=== PATIENT | male | born 2000 | race Caucasian/White ===

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

== ENCOUNTER 2021-11-04 09:20 | Emergency (ER) | payer BC ==
[2021-11-04] MEDS ORDERED: Sodium Chloride 0.9% 10 ML Syringe FLUSH PRN (09:23)
[2021-11-04] MEDS ORDERED: Ketorolac 30 MG/ML SDV IVPUSH ONE ×2 (09:29→09:56)
[2021-11-04] MEDS ORDERED: Ondansetron 4 MG/2 ML SDV IVPUSH ONE (09:30)
[2021-11-04] MEDS ORDERED: HYDROmorphone 1 MG/ML Syringe IVPUSH ONE ×2 (09:30→09:44)
[2021-11-04] MEDS ORDERED: Iopamidol 612 MG/ML 100 ML Bottle IVPUSH ONE (09:32)
[2021-11-04] MEDS ORDERED: Sodium Chloride 0.9% 1,000 ML IV ONE ×2 (09:32→10:36)
[2021-11-04 09:35] VITALS: BP 143/78; PULSE 106
[2021-11-04 10:09] LABS: ANION GAP 15.8 mEq/L (7-13); CHLORIDE,CL 104 mmol/L (98-107); SODIUM,NA 143 mmol/L (136-145)
[2021-11-04 10:10] LABS: ESTIMATED GFR 91 mL/min (>=60)
[2021-11-04] MEDS ORDERED: Tamsulosin 0.4 MG Cap.ER PO ONE (11:00)
[2021-11-04 12:16] LABS: MDMA (ECSTASY), URINE NEGATIVE (NEGATIVE); METHADONE,URINE NEGATIVE (NEGATIVE); METHAMPHETAMINES,URINE NEGATIVE (NEGATIVE); OPIATES,URINE POSITIVE (NEGATIVE)
[2021-11-04 12:17] LABS: AMPHETAMINES,URINE NEGATIVE (NEGATIVE); BARBITURATES,URINE NEGATIVE (NEGATIVE); BENZODIAZEPINE,URINE NEGATIVE (NEGATIVE); OXYCODONE,URINE NEGATIVE (NEGATIVE); PHENCYCLIDINE,URINE NEGATIVE (NEGATIVE); TCA,URINE NEGATIVE (NEGATIVE)
== END 2021-11-04 11:58 | disposition home or self-care (01) ==
LOC: DL.ED 09:20
DX: N13.2 Hydronephrosis with renal and ureteral calculous obstruction (principal); K38.1 Appendicular concretions
CPT/HCPCS: 36415; 74177; 80053; 80305-QW; 80307; 81001; 82150; 82550; 83605; 83690; 85025; 86140; 96361; 96374; 96375; 99284; 99284-25; A9270-GY; J1170; J1885; J2405; J3490; J7030; Q9967

== ENCOUNTER 2025-03-20 06:16 | Emergency (ER) | payer BC ==
[2025-03-20] MEDS ORDERED: Sodium Chloride 0.9% 10 ML Syringe FLUSH PRN (06:23)
[2025-03-20 06:34] LABS: BASOPHILS PERCENT AUTO 0.7 % (0.0-1.0); EOSINOPHILS PERCENT AUTO 1.7 % (1.0-3.0); LYMPHOCYTES PERCENT AUTO 44.0 % (20.5-50.1); MONOCYTES PERCENT AUTO 9.8 % (2-8); NEUTROPHILS PERCENT AUTO 43.8 % (42.2-75.2); PLATELET COUNT,PLT 267 10^3/uL (150-450); RED BLOOD CELL COUNT 4.97 10^6/uL (4.6-6.2); WHITE BLOOD CELL COUNT,WBC 5.4 10^3/uL (5.0-10.0)
[2025-03-20] MEDS: fentaNYL 100 MCG/2 ML SDV IVPUSH ONE ×2 (06:36→07:01)
[2025-03-20] MEDS: Ondansetron 4 MG/2 ML SDV IVPUSH ONE (06:37)
[2025-03-20 06:54] LABS: A/G RATIO 1.2; ALANINE AMINOTRANSFERASE,ALT 64 U/L (16-63); ASPARTATE AMNIOTRANSFERASE,AST 28 U/L (15-37); BILIRUBIN TOTAL 0.7 mg/dL (0.2-1.0); BLOOD UREA NITROGEN,BUN 14 mg/dL (7-18); CARBON DIOXIDE,CO2 27 mmol/L (21-32); CHLORIDE,CL 103 mmol/L (98-107); CREATININE 1.20 mg/dL (0.70-1.30); EST CRCL DRUG DOSING (CG) 96.32 mL/min; ESTIMATED GFR 86 mL/min (>=60); GLUCOSE RANDOM 114 mg/dL (70-99); POTASSIUM,K 4.1 mmol/L (3.5-5.1); PROTEIN TOTAL,TP 8.0 g/dL (6.4-8.2); SODIUM,NA 141 mmol/L (136-145)
[2025-03-20 06:57] LABS: LACTIC ACID 1.5 mmol/L (0.4-2.0)
[2025-03-20 07:22] LABS: APPEARANCE,URINE CLEAR (CLEAR); GLUCOSE,URINE NEGATIVE (NEGATIVE); OCCULT BLOOD,URINE LARGE (NEGATIVE)
[2025-03-20 07:34] LABS: EPITHELIAL CELLS,URINE FEW /HPF (NOT SEEN)
[2025-03-20 08:18] VITALS: BP 135/65; PULSE 56
[2025-03-20] MEDS: Lactated Ringers 1,000 ML IV ONE (08:23)
[2025-03-20] MEDS: Ketorolac 30 MG/ML SDV IVPUSH ONE (08:24)
== END 2025-03-20 10:30 | disposition home or self-care (01) ==
LOC: DL.ED 06:16
DX: N20.1 Calculus of ureter (principal); Z79.899 Other long term (current) drug therapy
CPT/HCPCS: 36415; 74176; 80053; 81001; 83605; 83735; 85025; 86140; 96361; 96374; 96375; 99284; A9270; J1885; J2405; J3010; J7030; J7120

== ENCOUNTER 2025-04-11 13:37 | Emergency (ER) | payer BC ==
[2025-04-11 14:11] LABS: BASOPHILS PERCENT AUTO 0.3 % (0.0-1.0); EOSINOPHILS PERCENT AUTO 1.0 % (1.0-3.0); LYMPHOCYTES PERCENT AUTO 26.0 % (20.5-50.1); MONOCYTES PERCENT AUTO 8.0 % (2-8); NEUTROPHILS PERCENT AUTO 64.7 % (42.2-75.2); PLATELET COUNT,PLT 222 10^3/uL (150-450); RED BLOOD CELL COUNT 4.92 10^6/uL (4.6-6.2); WHITE BLOOD CELL COUNT,WBC 9.7 10^3/uL (5.0-10.0)
[2025-04-11] MEDS: Ondansetron 4 MG/2 ML SDV IVPUSH ONE (14:15)
[2025-04-11] MEDS: fentaNYL 100 MCG/2 ML SDV IVPUSH ONE ×3 (14:15→14:51)
[2025-04-11 14:31] LABS: A/G RATIO 1.2; ALANINE AMINOTRANSFERASE,ALT 64 U/L (16-63); ASPARTATE AMNIOTRANSFERASE,AST 27 U/L (15-37); BILIRUBIN TOTAL 0.4 mg/dL (0.2-1.0); BLOOD UREA NITROGEN,BUN 10 mg/dL (7-18); CARBON DIOXIDE,CO2 29 mmol/L (21-32); CHLORIDE,CL 102 mmol/L (98-107); CREATININE 1.42 mg/dL (0.70-1.30); GLUCOSE RANDOM 108 mg/dL (70-99); POTASSIUM,K 4.4 mmol/L (3.5-5.1); PROTEIN TOTAL,TP 7.5 g/dL (6.4-8.2); SODIUM,NA 140 mmol/L (136-145)
[2025-04-11 14:33] LABS: ESTIMATED GFR 70 mL/min (>=60)
[2025-04-11] MEDS: Ketorolac 30 MG/ML SDV IVPUSH ONE (15:19)
[2025-04-11 15:34] LABS: APPEARANCE,URINE CLEAR (CLEAR); GLUCOSE,URINE NEGATIVE (NEGATIVE); OCCULT BLOOD,URINE TRACE-LYSED (NEGATIVE)
[2025-04-11 15:40] LABS: EPITHELIAL CELLS,URINE RARE /HPF (NOT SEEN)
[2025-04-11 17:23] VITALS: BP 97/61; PULSE 61
== END 2025-04-11 18:13 | disposition home or self-care (01) ==
LOC: DL.ED 13:37
DX: N13.2 Hydronephrosis with renal and ureteral calculous obstruction (principal); I95.9 Hypotension, unspecified
CPT/HCPCS: 36415; 74176; 80053; 81001; 83735; 85025; 96361; 96374; 96375; 96376; 99284; J1885; J2405; J3010; J7030